=== PATIENT | female | born 1945 | race Caucasian/White ===

== ENCOUNTER 2024-05-06 05:35 | Emergency (ER) | payer MEDICARE ==
[~2024-05-06] VITALS: Ht 167.6 cm; Wt 49.9 kg
[2024-05-06] MEDS ORDERED: ATOR20 PO (06:34)
[2024-05-06] MEDS ORDERED: LATA.005SO BOTHEYES (06:35)
[2024-05-06] MEDS ORDERED: DORZOPSO BOTHEYES (06:37)
== END 2024-05-06 08:13 | disposition home or self-care (01) ==
LOC: ER 05:35
DX: Z04.3 Encounter for examination and observation following other accident (principal); E78.5 Hyperlipidemia, unspecified; I10 Essential (primary) hypertension; Z79.899 Other long term (current) drug therapy
CPT/HCPCS: 99283

== ENCOUNTER → 2024-07-10 | Outpatient (CLI) | payer MEDICARE ==
[~2024-07-10] MED LIST: ATOR20 PO; DORZOPSO BOTHEYES; LATA.005SO BOTHEYES
[2024-07-10 16:02] LABS: Source, Urine Voided
[2024-07-10 17:56] LABS: Appearance, Urine Hazy (Clear); Bilirubin, Urine Neg (Neg); Blood, Urine 2+ (Neg); Color, Urine Yellow (P-Yellow); Glucose Qualitative, Urine Neg (Neg); Ketones, Urine Neg (Neg); Leukocyte Esterase, Urine 1+ (Neg); Nitrite, Urine Pos (Neg); Protein, Urine 2+ (Neg); Specific Gravity, Urine 1.025 (1.003-1.022); Urobilinogen, Urine NORM (Normal)
[2024-07-10 18:12] LABS: White Blood Cells, Urine 25-50 /hpf (0-5)
[2024-07-10 18:13] LABS: Bacteria Many /hpf; Calcium Oxalate Crystals Few /hpf; Squamous Epithelial Cells Few /hpf (Few)
== END | disposition home or self-care (01) ==
LOC: LAB 15:58 → LAB SHORT 15:58
PROVIDERS: Family Medicine
DX: N39.0 Urinary tract infection, site not specified (principal)
CPT/HCPCS: 81001; 87077; 87086; 87186